=== PATIENT | male | born 1955 | race African-American/Black ===

== ENCOUNTER 2017-09-12 18:05 | Emergency (ER) | payer OTHER ==
[2017-09-12] MEDS ORDERED: CIPROFLOXACIN HCL 500 MG TABLET PO ONE (18:56)
[2017-09-12] MEDS ORDERED: DIPH/PERTUSS(ACELL)/TETANUS VAC/PF 0.5 ML SYR (>=10YO) IM ONE (18:56)
[2017-09-12] MEDS ORDERED: CEPHALEXIN 500 MG CAPSULE PO ONE (18:56)
--- NOTE | 2017-09-12 18:59 | ER Document Report ---
HPI - HPI Patient complains to provider of: right foot injury Pain Level: 5 Context: Patient is a 61-year-old male that comes emergency department for chief complaint of right foot injury. He states yesterday he accidentally stepped on a board that had a nail and the nail went into his foot. He states the area is increasingly painful today. He denies any other injuries. He states he was wearing a shoe and the nail went through the shoe. He is not up-to-date on his tetanus. Past medical history of hypertension and BPH. He denies history of diabetes. - DERM Skin Color: Normal Past Medical History - General Information source: Patient - Social History Smoking Status: Never Smoker Frequency of alcohol use: None Drug Abuse: None Lives with: Family Family History: Reviewed & Not Pertinent Patient has suicidal ideation: No Patient has homicidal ideation: No - Past Medical History Cardiac Medical History: Reports: Hx Hypertension Renal/ Medical History: Reports: Hx Benign Prostatic Hyperplasia. Denies: Hx Peritoneal Dialysis - Immunizations Immunizations up to date: No Hx Diphtheria, Pertussis, Tetanus Vaccination: Yes Vertical Provider Document - CONSTITUTIONAL General Appearance: WD/WN, No Apparent Distress - INFECTION CONTROL TRAVEL OUTSIDE OF THE [place] IN LAST 30 DAYS: No - HEENT HEENT: Atraumatic, Normocephalic - RESPIRATORY Respiratory: Breath Sounds Normal, No Respiratory Distress O2 Sat by Pulse Oximetry: 95 - CARDIOVASCULAR Cardiovascular: Regular Rate, Regular Rhythm - GI/ABDOMEN Gastrointestinal: Abdomen Soft, Abdomen Non-Tender - BACK Back: Normal Inspection - MUSCULOSKELETAL/EXTREMETIES Musculoskeletal/Extremeties: Tender - There is a small puncture wound over the plantar aspect of the right foot towards the front of the foot in the center. No surrounding erythema, mild tenderness of the area, no drainage from the area , no other signs of trauma or abnormality over the foot, leg, ankle Course - Re-evaluation Re-evalutation: X-ray showing no fracture or foreign body. Puncture wound through the shoe, will cover for Pseudomonas with Cipro, will cover for staph/strep with Keflex, place patient on crutches, discussed wound care, follow-up, return precautions. Patient states understanding and agreement. - Vital Signs Vital signs: Temp Pulse Resp BP Pulse Ox 98.2 F 67 18 133/63 H 95 09/12/17 18:23 10/30/17 18:23 09/12/17 18:23 09/12/17 18:23 09/12/17 18:23 Discharge - Discharge Clinical Impression: Puncture wound Right foot injury Qualifiers: Encounter type: initial encounter Qualified Code(s): S99.921A - Unspecified injury of right foot, initial encounter Condition: Stable Disposition: HOME, SELF-CARE Instructions: Tetanus Immunization Given ([facility]) Additional Instructions: Your x-ray shows no fracture or foreign body. Your examination shows a puncture wound, elevate your foot, use the crutches, clean area with soap and water and apply topical antibiotic ointment dressing. Please take the antibiotics as prescribed to prevent infection. I also recommend the anti- inflammatory medication prescribed. Follow-up with your primary care provider. Return if you develop any concerning or worsening symptoms including increased swelling of the foot, redness of the foot, fever, discolored discharge , or any other concerning symptoms. Prescriptions: Cephalexin Monohydrate [Keflex 500 mg Capsule] 500 mg PO QID #20 capsule Ciprofloxacin HCl [Cipro 500 mg Tablet] 500 mg PO BID #10 tablet Naproxen [Naprosyn 375 Mg Tablet] 375 mg PO BID #20 tablet
--- NOTE | 2017-09-12 19:47 | RADIOLOGY REPORT (SQ) ---
EXAM DESCRIPTION: FOOT RIGHT COMPLETE COMPLETED DATE/TIME: 09/12/2017 7:22 pm REASON FOR STUDY: stepped on a nail, pain COMPARISON: None. NUMBER OF VIEWS: Three views. TECHNIQUE: AP, lateral and oblique radiographic images acquired of the right foot. LIMITATIONS: None. FINDINGS: MINERALIZATION: Normal. BONES: No acute fracture or dislocation. There is some bony deformity of proximal end of the proxima l phalanx of the 1st digit with a separate bony ossicle being identified which may be related to prev ious trauma. JOINTS: No effusions. SOFT TISSUES: No soft tissue swelling. No foreign body. OTHER: No other significant finding. IMPRESSION: No evidence for acute fracture or dislocation. No radiopaque foreign body is identified . Other findings as noted above TECHNICAL DOCUMENTATION: JOB ID: [id number]- All Rights Reserved
[2017-09-12] MEDS ORDERED: HYDROCODONE/ACETAMINOPHEN 5-325 MG 6 TAB/DSPK PO PRN (20:16)
[2017-09-12 20:50] VITALS: BP 127/76
== END 2017-09-12 20:50 | disposition home or self-care (01) ==
LOC: ER 18:05
DX: S91.331A Puncture wound without foreign body, right foot, initial encounter (principal); W45.0XXA Nail entering through skin, initial encounter; I10 Essential (primary) hypertension
CPT/HCPCS: 90471; 90715; 99283